=== PATIENT | male | born 1985 | race Caucasian/White ===

== ENCOUNTER 2016-12-07 10:04 | Day surgery (SDC) | payer BC ==
[2016-12-07] MEDS ORDERED: Lactated Ringers 1,000 ML IV ONE (11:24)
[2016-12-07] MEDS ORDERED: Lactated Ringers 1,000 ML IV SCH (11:30)
== END 2016-12-07 12:04 ==
LOC: SDC-PAIN 10:04
PROVIDERS: ATTEND Pain Medicine Interventional Pain Medicine
DX: Z53.9 Procedure and treatment not carried out, unspecified reason (principal)

== ENCOUNTER 2017-03-08 09:02 | Day surgery (SDC) | payer BC | END 2017-03-08 12:30 | disposition home or self-care (01) | LOC: SDC-PAIN 09:02 | PROVIDERS: ATTEND Pain Medicine Interventional Pain Medicine | DX: Z53.9 Procedure and treatment not carried out, unspecified reason (principal) ==